=== PATIENT | female | born 1995 | race Caucasian/White ===

== ENCOUNTER 2017-08-28 19:01 | Emergency (ER) | END 2017-08-28 22:50 | disposition home or self-care (01) ==

== ENCOUNTER 2017-10-07 17:12 | Emergency (ER) | END 2017-10-07 19:19 | disposition home or self-care (01) ==

== ENCOUNTER 2017-12-19 10:06 | Emergency (ER) | END 2017-12-19 11:43 | disposition home or self-care (01) ==

== ENCOUNTER 2017-12-21 14:28 | Emergency (ER) | END 2017-12-21 17:09 | disposition home or self-care (01) ==

== ENCOUNTER 2018-03-24 06:06 | Emergency (ER) | END 2018-03-24 07:09 | disposition home or self-care (01) ==

== ENCOUNTER 2018-10-31 20:10 | Emergency (ER) | payer OTHER ==
[~2018-10-31] VITALS: Ht 160 cm; Wt 120.0 kg
[~2018-10-31 20:10] MED LIST: AMOX1TAB10 PO; AMOX500C2 PO; CLOT30CR24 TOP; HYDR-4011 PO; IBUP-1542 PO; LEVOTHYROXINE PO; NAPR-688 PO; PENI500T PO; TYL500 PO
[2018-10-31 21:09] VITALS: BP 167/110; PULSE 138; RESP 20; Ht 160 cm; Wt 120.0 kg
[2018-10-31] MEDS ORDERED: PENI500T PO (21:27)
[2018-10-31] MEDS ORDERED: IBUP-1542 PO (21:27)
--- NOTE | 2018-10-31 21:29 | ERD ---
ER Documentation Chief Complaint Chief Complaint C/O ST AND FEELING HOT FROM INSIDE SINCE YESTERDAY HPI 23-year-old female presents with fever and sore throat since yesterday. She denies cough, vomiting, abdominal pain, urinary complaints. ROS All systems reviewed and are negative except as per history of present illness. Medications Home Meds Active Scripts Ibuprofen* (Motrin*) 600 Mg Tab, 600 MG PO Q6, #15 TAB Prov:SOFIE HARTMANN MD 10/31/18 Penicillin V Potassium* (Penicillin V K*) 500 Mg Tab, 500 MG PO QID for 10 Days, TAB Prov:SOFIE HARTMANN MD 10/31/18 Amoxicillin* (Amoxicillin*) 500 Mg Cap, 500 MG PO BID for 7 Days, CAP Prov:STEVIE GAR PA-C 03/24/18 Ibuprofen* (Motrin*) 600 Mg Tab, 600 MG PO Q6, #30 TAB Prov:STEVIE GAR PA-C 03/24/18 Acetaminophen* (Tylenol*) 500 Mg Tab, 1000 MG PO Q8H PRN for PAIN AND OR ELEVATED TEMP, #30 TAB Prov:CUCA RODGERS 12/19/17 Penicillin V Potassium* (Penicillin V K*) 500 Mg Tab, 500 MG PO BID for 10 Days, TAB Prov:CUCA RODGERS 12/19/17 Amoxicillin/Potassium Clav (Amox-Clav 875-125 mg Tablet) 875-125 mg Tab, 1 TAB PO BID, #20 TAB Prov:MARY ALICE SALAS DO 10/07/17 Naproxen* (Naproxen*) 500 Mg Tablet, 500 MG PO BID PRN for PAIN, #20 TAB Prov:MARY ALICE SALAS DO 18 Hydrocodone/Acetaminophen ([place] 5-325 Tablet) 1 Each Tablet, 1 EACH PO Q6 for SEVERE PAIN LEVEL 7-10, #10 TAB Prov:MARY ALICE SALAS DO 10/07/17 Clotrimazole* (Clotrimazole* AF) 1% - 30 Gm Cream.gm., 1 APPLIC TOP BID for 7 Days, #1 TUB Prov:STEVIE GAR PA-C 08/28/17 Reported Medications [Levothyroxine] No Conflict Check, PO DAILY 12/04/15 Allergies Allergies: Coded Allergies: No Known Allergy (Unverified , 12/21/17) PMhx/Soc History of Surgery: Yes (Left armpit lymphnode SX) Anesthesia Reaction: No Hx Neurological Disorder: No Hx Respiratory Disorders: No Hx Cardiac Disorders: No Hx Psychiatric Problems: No Hx Miscellaneous Medical Probl: Yes (HYPOTHYROID , MASTITIS with I&D) Hx Alcohol Use: Yes (ocassional) Hx Substance Use: No Hx Tobacco Use: No FmHx Family History: No diabetes, No coronary disease, No other Physical Exam Vitals Vital Signs Date Temp Pulse Resp B/P (MAP) Pulse Ox O2 O2 Flow FiO2 Time Delivery Rate 10/31/18 102.4 138 20 167/110 99 21:09 (129) Physical Exam Const: No acute distress Head: Atraumatic Eyes: Normal Conjunctiva ENT: Normal External Ears, Nose and Mouth. Tonsils 3+ with redness. Minimal exudate. Uvula midline. Neck: Full range of motion. No meningismus. Resp: Clear to auscultation bilaterally Cardio: Regular rate and rhythm, no murmurs Abd: Soft, non tender, non distended. Normal bowel sounds Skin: No petechiae or rashes Back: No midline or flank tenderness Ext: No cyanosis, or edema Neur: Awake and alert Psych: Normal Mood and Affect Results 24 hrs Current Medications Medications Dose Sig/Silvestre Start Time Status Last (Trade) Ordered Route PRN Stop Time Admin Dose Reason Admin 650 mg ONCE ONCE 10/31/18 Acetaminophen PO 21:30 (Tylenol 10/31/18 21:31 Tab) Ibuprofen 400 mg ONCE ONCE 10/31/18 (Motrin) PO 21:30 10/31/18 21:31 Procedures/MDM Zentz with signs and symptoms of acute pharyngitis without signs of abscess, airway obstruction.. Given findings on exam we will treat with penicillin, fever control, primary care follow-up and return precautions. She has no signs of severe sepsis. The patient was stable with no new complaints during the ER course. Clinically, there is no current evidence to suggest meningitis, sepsis, acute abdomen, pneumonia, stroke, acute coronary syndrome, pulmonary embolism, aortic dissection or any other emergent condition appearing to require further evaluation or hospitalization. Patient counseled regarding my diagnostic impression and care plan. Prior to discharge all questions answered. Pt agrees with treatment plan and understands strict return precautions. Pt is instructed to follow up with primary care provider within 24-48 hours. Precautionary inst ructions provided including instructions to return to the ER if not improving or for any worsening or changing symptoms or concerns. Disclaimer: Inadvertent spelling and grammatical errors are likely due to EHR/dictation software use and do not reflect on the overall quality of patient care. Also, please note that the electronic time recorded on this note does not necessarily reflect the actual time of the patient encounter. Departure Diagnosis: Primary Impression: Sore throat Condition: Stable Patient Instructions: Fever Control (Adult), Pharyngitis, Strep (Presumed) Additional Instructions: Drink plenty fluids at home. Recheck for new worsening symptoms with primary care doctor. Take Tylenol every 4 hours for fever. SOFIE HARTMANN MD October 31, 2018 21:29
[2018-10-31] MEDS ORDERED: IBUPROFEN 200 MG TAB PO ONE (21:30)
[2018-10-31] MEDS ORDERED: ACETAMINOPHEN 325 MG TAB PO ONE (21:30)
== END 2018-10-31 22:05 | disposition home or self-care (01) ==
LOC: FTE 20:10
DX: J02.9 Acute pharyngitis, unspecified (principal)
CPT/HCPCS: Z7502; Z7610; 99283

== ENCOUNTER 2018-11-05 09:34 | Emergency (ER) | payer OTHER ==
[~2018-11-05] VITALS: Wt 126.0 kg
[2018-11-05 09:36] VITALS: BP 143/90; PULSE 90; RESP 18
[2018-11-05] MEDS ORDERED: HC30CR25 TOP (09:54)
[2018-11-05] MEDS ORDERED: CEPH-443 PO (09:54)
[2018-11-05] MEDS ORDERED: DIPHENHYDRAMINE 25 MG CAP PO ONE (10:00)
--- NOTE | 2018-11-05 10:07 | ERD ---
ER Documentation Chief Complaint Chief Complaint POSSIBLE INSECT BITE LEFT LEG AND RIGHT BUTTOCKS HPI 23-year-old female presenting with a insect bite to the left lower leg and right thigh. Patient states that started 2 days ago. She is current taking penicillin for strep infection. She states that the bites are warm and itchy. They are also mildly tender. She took ibuprofen yesterday with tactile fevers however no fevers today no medications. Medical history of hypertension. Surgical history mastitis and cyst removal. Social history denies. ROS All systems reviewed and are negative except as per history of present illness. Medications Home Meds Active Scripts Hydrocortisone* Topical (Hydrocortisone* Topical) 2.5%-28.3 Gm Cream..g., 1 APPLIC TOP BID, #1 TUB Prov:YAN DONALD PA-C 11/05/18 Cephalexin* (Keflex*) 500 Mg Capsule, 500 MG PO QID for 7 Days, CAP Prov:YAN DONALD PA-C 11/05/18 Ibuprofen* (Motrin*) 600 Mg Tab, 600 MG PO Q6, #15 TAB Prov:SOFIE HARTMANN MD 10/31/18 Penicillin V Potassium* (Penicillin V K*) 500 Mg Tab, 500 MG PO QID for 10 Days, TAB Prov:SOFIE HARTMANN MD 10/31/18 Amoxicillin* (Amoxicillin*) 500 Mg Cap, 500 MG PO BID for 7 Days, CAP Prov:STEVIE GAR PA-C 03/24/18 Ibuprofen* (Motrin*) 600 Mg Tab, 600 MG PO Q6, #30 TAB Prov:STEVIE GAR PA-C 03/24/18 Acetaminophen* (Tylenol*) 500 Mg Tab, 1000 MG PO Q8H PRN for PAIN AND OR ELEVATED TEMP, #30 TAB Prov:CUCA RODGERS 12/19/17 Penicillin V Potassium* (Penicillin V K*) 500 Mg Tab, 500 MG PO BID for 10 Days, TAB Prov:UCCA RODGERS 12/19/17 Amoxicillin/Potassium Clav (Amox-Clav 875-125 mg Tablet) 875-125 mg Tab, 1 TAB PO BID, #20 TAB Prov:MARY ALICE SALAS DO 10/07/17 Naproxen* (Naproxen*) 500 Mg Tablet, 500 MG PO BID PRN for PAIN, #20 TAB Prov:MARY ALICE SALAS DO 10/07/17 Hydrocodone/Acetaminophen ([place] 5-325 Tablet) 1 Each Tablet, 1 EACH PO Q6 for SEVERE PAIN LEVEL 7-10, #10 TAB Prov:MARY ALICE SALAS DO 10/07/17 Clotrimazole* (Clotrimazole* AF) 1% - 30 Gm Cream.gm., 1 APPLIC TOP BID for 7 Days, #1 TUB Prov:STEVIE GAR PA-C 08/28/17 Reported Medications [Levothyroxine] No Conflict Check, PO DAILY 12/04/15 Allergies Allergies: Coded Allergies: No Known Allergy (Unverified , 12/21/17) PMhx/Soc History of Surgery: Yes (Left armpit lymphnode SX) Anesthesia Reaction: No Hx Neurological Disorder: No Hx Respiratory Disorders: No Hx Cardiac Disorders: No Hx Psychiatric Problems: No Hx Miscellaneous Medical Probl: Yes (HYPOTHYROID , MASTITIS with I&D) Hx Alcohol Use: Yes (ocassional) Hx Substance Use: No Hx Tobacco Use: No Smoking Status: Never smoker FmHx Family History: No diabetes, No coronary disease, No other Physical Exam Vitals Vital Signs Date Temp Pulse Resp B/P (MAP) Pulse Ox O2 O2 Flow FiO2 Time Delivery Rate 11/05/18 98.3 90 18 143/90 99 09:36 (107) Physical Exam GENERAL: The patient is well-appearing, well-nourished, in no acute distress CHEST: Clear to auscultation bilaterally. There are no rales, wheezes or rhonchi. HEART: Regular rate and rhythm. No murmurs, clicks, rubs or gallops. No S3 or S4. EXTREMITIES: Equal pulses bilaterally. There is no peripheral clubbing, cyanosis or edema. No focal swelling or erythema. Full range of motion. Grossly neurovascularly intact. NEUROLOGIC: Alert and oriented. Cranial nerves II through XII intact. Motor s trength in all 4 extremities with 5 out of 5 strength. Sensation grossly intact. Normal speech and gait. SKIN: Erythema noted to the left lower extremity and right leg thigh region. No lymphatic streaking. Results 24 hrs Current Medications Medications Dose Sig/Silvestre Start Time Status Last (Trade) Ordered Route PRN Stop Time Admin Dose Reason Admin 25 mg ONCE ONCE 11/05/18 DC 11/05/18 Diphenhydrami PO 10:00 09:55 ne HCl 11/05/18 10:01 (Benadryl) Procedures/MDM ER course: Benadryl given ED. MDM: 23-year-old female presenting with insect bite to legs. Patient does not appear to have severe infection development and erythema may be secondary to reaction and irritation of bite wound. Patient is told symptoms change or worsen to return immediately to the ER. Patient is recommended to use suppo rtive medications. Patient is discharged with strict ER precautions. All questions answered at discharge Departure Diagnosis: Primary Impression: Insect bite Condition: Stable Patient Instructions: Insect Bites and Stings Referrals: [facility] YOU HAVE RECEIVED A MEDICAL SCREENING EXAM AND THE RESULTS INDICATE THAT YOU DO NOT HAVE A CONDITION THAT REQUIRES URGENT TREATMENT IN THE EMERGENCY DEPARTMENT. FURTHER EVALUATION AND TREATMENT OF YOUR CONDITION CAN WAIT UNTIL YOU ARE SEEN IN YOUR DOCTORS OFFICE WITHIN THE NEXT 1-2 DAYS. IT IS YOUR RESPONSIBILITY TO MAKE AN APPOINTMENT FOR FOLOW-UP CARE. IF YOU HAVE A PRIMARY DOCTOR --you should call your primary doctor and schedule an appointment IF YOU DO NOT HAVE A PRIMARY DOCTOR YOU CAN CALL OUR PHYSICIAN REFERRAL HOTLINE AT IF YOU CAN NOT AFFORD TO SEE A PHYSICIAN YOU CAN CHOSE FROM THE FOLLOWING [facility] [address] [facility]. [facility] [address] [facility] [facility] [address] [facility] [facility] [address] [facility]. [facility] [address] [facility]. [facility]. [address] Additional Instructions: FOLLOW UP WITH YOUR PRIMARY CARE PHYSICIAN TOMORROW.Return to this facility if you are not improving as expected. YAN DONALD PA-C November 05, 2018 10:07
== END 2018-11-05 10:10 | disposition home or self-care (01) ==
LOC: FTE 09:34
DX: S81.852A Open bite, left lower leg, initial encounter (principal); S71.151A Open bite, right thigh, initial encounter; E03.9 Hypothyroidism, unspecified; I10 Essential (primary) hypertension; W57.XXXA Bitten or stung by nonvenomous insect and other nonvenomous arthropods, initial encounter; Y92.9 Unspecified place or not applicable
CPT/HCPCS: Z7502; Z7610; 99283